=== PATIENT | male | born 1965 | race African-American/Black ===

== ENCOUNTER 2017-04-08 10:53 | Emergency (ER) | payer MEDICARE ==
[~2017-04-08 10:53] MED LIST: ATENOLOL PO; KETOPROFEN PO; LISINOPRIL PO; THORAZINE25 MG PO
== END 2017-04-08 13:21 | disposition home or self-care (01) ==
LOC: CED 10:53 → CFTX 10:53
DX: Z76.0 Encounter for issue of repeat prescription (principal); I10 Essential (primary) hypertension; K21.9 Gastro-esophageal reflux disease without esophagitis
CPT/HCPCS: 99282